=== PATIENT | male | born 1980 | race Caucasian/White ===

== ENCOUNTER 2016-11-27 05:30 | Emergency (ER) | payer MEDICAID ==
[2016-11-27 05:50] VITALS: BP 132/75
[2016-11-27] MEDS ORDERED: Ketorolac 60 MG/2 ML SDV IM ONE (06:20)
[2016-11-27] MEDS ORDERED: Indomethacin 25 MG Cap PO ONE (06:25)
--- NOTE | 2016-11-27 07:36 | ER ---
DATE SEEN: 11/27/2016 CHIEF COMPLAINT: Pain in toe. HISTORY OF PRESENT ILLNESS: This is a 36-year-old male complaining of pain in the right toe that started when he was street walking. Severe pain on any touch beneath the foot, associated with some tightness. REVIEW OF SYSTEMS: No fever or chills. SOCIAL HISTORY: He admits to drinking alcohol regularly. MEDICATIONS: None. ALLERGIES: None. PHYSICAL EXAMINATION: VITAL SIGNS: Blood pressure is normal. Temp 97.2. EXTREMITIES: Right foot showed mild swelling. Edema of the first metatarsal. Exquisite tenderness to palpation. Decreased range of motion. IMAGING: X-ray was negative. IMPRESSION: First metatarsal joint pain, rule out gout. PLAN: Ketorolac 60 mg IM and indomethacin 50 mg orally once. I will write a prescription for indomethacin to use 50 mg 3 times a day. Information of gout will be provided. /[id number] CHARISSE/JADEN
--- NOTE | 2016-11-27 11:13 | CR ---
INDICATION: Pain in ball of foot. RIGHT FOOT: Three views of the right foot were obtained and revealed a small plantar calcaneal spur with no other significant bone or joint abnormality. If an occult fracture site is suspected clinically, nuclear bone imaging is recommended for further evaluation. MTDD
== END 2016-11-27 06:45 | disposition home or self-care (01) ==
LOC: FB.ED 05:30
DX: M25.571 Pain in right ankle and joints of right foot (principal)
CPT/HCPCS: 73630; 96372; 99283; A9270; J1885

== ENCOUNTER 2017-08-09 21:13 | Emergency (ER) | payer MEDICAID ==
[2017-08-09] MEDS ORDERED: Cyclobenzaprine 10 MG Tab PO ONE (21:14)
[2017-08-09] MEDS ORDERED: Acetaminophen/HYDROcodone 325-5 MG Tab PO ONE (21:14)
[2017-08-09] MEDS ORDERED: Ketorolac 60 MG/2 ML SDV IM ONE (21:18)
[2017-08-09 22:30] VITALS: BP 132/73
--- NOTE | 2017-08-11 00:56 | ER ---
DATE SEEN: 08/09/2017 TIME SEEN: 2200 hours. REASON FOR VISIT: Back pain. HISTORY OF PRESENT ILLNESS: A 37-year-old male, who complains of back pain. Sudden onset, sitting down eating when the pain started. Severe low back area with no radiation, any movement makes it worse. Associated spasms. PAST MEDICAL HISTORY: This has happened before 2 years ago. No recent trauma. ALLERGIES: None. REVIEW OF SYSTEMS: No weakness of the legs, urinary symptoms, fever, or chills. PHYSICAL EXAMINATION: GENERAL: He is in a wheelchair. VITAL SIGNS: Blood pressure is normal. He is afebrile. MUSCULOSKELETAL: Lower back several muscle spasms noted. Tenderness in the paravertebral muscles in the lumbar area. Gait and station antalgic, difficult, stiff. NEUROLOGIC: No focal findings. Straight leg raising test negative. IMPRESSION: Back spasm. PLAN: Ketorolac and Valium. Symptoms improved somewhat. The patient is sent home on hydrocodone and Flexeril, to follow up in the office p.[email or web address] /[id number] CHARISSE/JADEN
== END 2017-08-09 22:25 | disposition home or self-care (01) ==
LOC: FB.ED 21:13
DX: M62.830 Muscle spasm of back (principal)
CPT/HCPCS: 96372; 99283; A9270; J1885; J3360

== ENCOUNTER 2018-01-18 00:58 | Emergency (ER) | payer MEDICAID ==
--- NOTE | 2018-01-18 01:14 | EDM.PDOC ---
ED HPI GENERAL MEDICAL PROBLEM - General Stated Complaint: ABDOMINAL PAIN Time Seen by Provider: 01/18/18 01:00 Source of Information: Reports: Patient History Limitations: Reports: No Limitations - History of Present Illness INITIAL COMMENTS - FREE TEXT/NARRATIVE: c/o cramping abd pain works 12h days pouring concrete, felt fine on return home from work, ate supper , went to bed, awake 1h [employer] and had hard cramping pain in suprapubic area "crying in pain," loose BM x 2, then passed gas on ride to ED and now feels fine will check electrolytes, does appear mildly dehydrated, says he drinks a galloon of H2O when working - Related Data Allergies Allergy/AdvReac Type Severity Reaction Status Date / Time No Known Allergies Allergy Verified 01/18/18 01:55 Home Meds: Home Meds NK [No Known Home Meds] 08/09/17 [History] Past Medical History Other Musculoskeletal History: low back pain Psychiatric History: Reports: Depression Social & Family History - Family History Family Medical History: Unobtainable - Caffeine Use Caffeine Use: Reports: Tea ED ROS GENERAL - Review of Systems Review Of Systems: See Below Constitutional: Reports: No Symptoms HEENT: Reports: No Symptoms Respiratory: Reports: No Symptoms Cardiovascular: Reports: No Symptoms Endocrine: Reports: No Symptoms GI/Abdominal: Reports: Abdominal Pain : Reports: No Symptoms Musculoskeletal: Reports: No Symptoms Skin: Reports: No Symptoms Neurological: Reports: No Symptoms Psychiatric: Reports: No Symptoms Hematologic/Lymphatic: Reports: No Symptoms Immunologic: Reports: No Symptoms ED EXAM, GI/ABD - Physical Exam Exam: See Below Exam Limited By: No Limitations General Appearance: Alert, WD/WN, No Apparent Distress Nose: Normal Inspection, Normal Mucosa Throat/Mouth: Normal Inspection, Normal Lips, No Airway Compromise Head: Atraumatic, Normocephalic Neck: Normal Inspection, Supple, Non-Tender, Full Range of Motion Respiratory/Chest: No Respiratory Distress, Lungs Clear, Normal Breath Sounds, No Accessory Muscle Use, Chest Non-Tender Cardiovascular: Regular Rate, Rhythm, No JVD, No Murmur Back Exam: Normal Inspection, Full Range of Motion. No: CVA Tenderness (R), CVA Tenderness (L) Extremities: Normal Inspection, Normal Range of Motion, Non-Tender, No Pedal Edema Neurological: Alert, Oriented, CN II-XII Intact, Normal Cognition, No Motor/ Sensory Deficits Psychiatric: Normal Affect, Normal Mood Skin Exam: Warm, Dry, Intact, Normal Color, No Rash, Other (mild dec'd turgor) Lymphatic: No Adenopathy Course - Vital Signs Last Recorded V/S: Last Vital Signs Temp 37.2 C 01/18/18 02:10 Pulse 76 01/18/18 02:10 Resp 18 01/18/18 02:10 BP 108/72 01/18/18 02:10 Pulse Ox 96 01/18/18 02:10 - Orders/Labs/Meds Labs: Laboratory Tests 01/18/18 01/18/18 Range/Units 01:37 01:37 WBC 7.9 (4.5-12.0) X10-3/uL RBC 4.36 (4.30-5.75) x10(6)uL Hgb 13.5 (11.5-15.5) g/dL Hct 39.1 (30.0-51.3) % MCV 89.6 (80-96) fL MCH 31.0 (27.7-33.6) pg MCHC 34.5 (32.2-35.4) g/dL RDW 12.6 (11.5-15.5) % Plt Count 188 (125-369) X10(3)uL MPV 8.6 (7.4-10.4) fL Neut % (Auto) 76.2 (46-82) % Lymph % (Auto) 12.4 L (13-37) % Buchanan % (Auto) 8.6 (4-12) % Eos % (Auto) 2 (1.0-5.0) % Baso % (Auto) 0 (0-2) % Neut # (Auto) 6.0 (1.6-8.3) # Lymph # (Auto) 1.0 (0.6-5.0) # Buchanan # (Auto) 0.7 (0.0-1.3) # Eos # (Auto) 0.2 (0.0-0.8) # Baso # (Auto) 0.0 (0.0-0.2) # Sodium 140 (135-145) mmol/L Potassium 3.8 (3.5-5.3) mmol/L Chloride 107 (100-110) mmol/L Carbon Dioxide 24 (21-32) mmol/L BUN 12 (7-18) mg/dL Creatinine 1.0 (0.70-1.30) mg/dL Est Cr Clr Drug Dosing TNP Estimated GFR (MDRD) > 60 (>60) BUN/Creatinine Ratio 12.0 (9-20) Glucose 126 H (80-116) mg/dL Calcium 7.7 L (8.6-10.2) mg/dL Total Bilirubin 0.4 (0.1-1.3) mg/dL AST 14 (5-25) IU/L ALT 23 (12-36) U/L Alkaline Phosphatase 72 (56-112) IU/L Total Protein 5.9 L (6.0-8.0) g/dL Albumin 3.1 L (3.5-5.2) g/dL Globulin 2.8 g/dL Albumin/Globulin Ratio 1.1 - Re-Assessments/Exams Free Text/Narrative Re-Assessment/Exam: 01/18/18 02:24 electrolytes neg, alb a little low pt sleeping Departure - Departure Time of Disposition: 02:25 Disposition: Home, Self-Care 01 Condition: Good Clinical Impression: Spasm of colon - Discharge Information Instructions: Rehydration, Adult Referrals: Jatin Hollingsworth MD [Primary Care Provider] - Additional Instructions: Maintain fluids, at least 4 liters daily when working in hot weather. Eat 3 meals a day. See your doctor in 1 week. Return to Emergency Department if you are feeling worse.
[2018-01-18 02:16] VITALS: BP 108/72
== END 2018-01-18 02:30 | disposition home or self-care (01) ==
LOC: FB.ED 00:58
DX: K58.9 Irritable bowel syndrome, unspecified (principal)
CPT/HCPCS: 36415; 80053; 85025; 99283

== ENCOUNTER 2018-02-08 03:43 | Emergency (ER) | payer MEDICAID ==
[2018-02-08] MEDS ORDERED: Ibuprofen 600 MG Tab PO ONE (03:50)
--- NOTE | 2018-02-08 03:50 | EDM.PDOC ---
ED HPI GENERAL MEDICAL PROBLEM - General Stated Complaint: LT FOOT PAIN Time Seen by Provider: 02/08/18 03:43 Source of Information: Reports: Patient, Family History Limitations: Reports: No Limitations - History of Present Illness INITIAL COMMENTS - FREE TEXT/NARRATIVE: 37 y.o.w.m came to the ed due to right dorsal foot pain. Pt does not remember a trauma. Pt can not apply full pineda onto his right foot due to pain. No open wound no other acute medical issues. BP 116/62 RR 16 Pulse ox 98 Temp 36.6 Pulse 66 Onset Date: 02/07/18 Onset Time: 22:00 Duration: Hour(s):, Intermittent Location: Reports: Lower Extremity, Right (foot) Quality: Reports: Ache, Dull, Same as Previous Episode Severity: Moderate Improves with: Reports: Rest Worsens with: Reports: Movement Context: Reports: Other (does not remmember a trauma. ) Associated Symptoms: Reports: No Other Symptoms - Related Data Allergies Allergy/AdvReac Type Severity Reaction Status Date / Time No Known Allergies Allergy Verified 02/08/18 04:26 Home Meds: Home Meds NK [No Known Home Meds] 08/09/17 [History] Past Medical History Respiratory History: Reports: Asthma, Other (See Below) Other Respiratory History: States he had asthma as a baby. Other Musculoskeletal History: low back pain Psychiatric History: Reports: Depression Social & Family History - Family History Family Medical History: Unobtainable - Caffeine Use Caffeine Use: Reports: Tea Review of Systems - Review of Systems Review Of Systems: See Below Constitutional: Reports: No Symptoms Eyes: Reports: No Symptoms Ears: Reports: No Symptoms Nose: Reports: No Symptoms Mouth/Throat: Reports: No Symptoms Respiratory: Reports: No Symptoms Cardiovascular: Reports: No Symptoms GI/Abdominal: Reports: No Symptoms Genitourinary: Reports: No Symptoms Musculoskeletal: Reports: Foot Pain Skin: Reports: No Symptoms Neurological: Reports: No Symptoms Psychiatric: Reports: No Symptoms ED EXAM, GENERAL - Physical Exam Exam: See Below Exam Limited By: No Limitations General Appearance: Alert, WD/WN, Mild Distress Eye Exam: Bilateral Eye: Normal Inspection Ears: Normal External Exam Ear Exam: Bilateral Ear: Auricle Normal Nose: Normal Inspection, Normal Mucosa, No Blood Throat/Mouth: Normal Inspection, Normal Lips, Normal Voice, No Airway Compromise Head: Atraumatic, Normocephalic Neck: Normal Inspection, Supple, Non-Tender, Full Range of Motion Respiratory/Chest: No Respiratory Distress, Lungs Clear, Normal Breath Sounds, Chest Non-Tender Cardiovascular: Normal Peripheral Pulses, Regular Rate, Rhythm, No Edema Peripheral Pulses: 1+: Brachial (R) GI/Abdominal: Normal Bowel Sounds, Soft, Non-Tender, No Organomegaly, No Abnormal Bruit, No Mass (Male) Exam: Deferred Rectal (Males) Exam: Deferred Back Exam: Normal Inspection, Full Range of Motion Extremities: Normal Range of Motion, Normal Capillary Refill, Other (swolen and tender right foot, dorsal aspect) Neurological: Alert, Oriented, CN II-XII Intact, Normal Cognition, Abnormal Gait (due to right foot pain) Psychiatric: Normal Affect, Normal Mood Skin Exam: Warm, Dry, Intact, Normal Color, No Rash Lymphatic: No Adenopathy Course - Vital Signs Text/Narrative:: 37 y.o.w.m came to the ed due to right dorsal foot pain. Pt does not remember a trauma. Pt can not apply full pineda onto his right foot due to pain. No open wound no other acute medical issues. BP 116/62 RR 16 Pulse ox 98 Temp 36.6 Pulse 66 PE: WNWD W M with right foot pain Imaging; Right foot/ankle: NAD Official report is pending Impression: Right foot sprain DDx Gout right foot Tx: ICE, Motrin/Toradol, Crutches Reexam: Improved Plan: D/C with instruction Last Recorded V/S: Last Vital Signs Temp 36.8 C 02/08/18 04:50 Pulse 66 02/08/18 04:50 Resp 16 02/08/18 04:50 BP 123/76 02/08/18 04:50 Pulse Ox 98 02/08/18 04:50 - Orders/Labs/Meds Orders: Active Orders 24 hr Category Date Time Status Ankle Min 3V Rt [CR] Stat Exams 02/08/18 03:48 Taken Foot Comp Min 3V Rt [CR] Stat Exams 02/08/18 03:48 Taken Ice Therapy [OM.PC] Routine Oth 02/08/18 03:50 Ordered Meds: Medications Discontinued Medications Generic Name Dose Route Start Last Admin Trade Name Mehul PRN Reason Stop Dose Admin Ibuprofen 600 mg 02/08/18 03:50 02/08/18 04:27 Motrin PO 02/08/18 03:51 600 mg ONETIME ONE Administration Ketorolac Tromethamine 60 mg 02/08/18 04:41 02/08/18 04:45 Toradol IM 02/08/18 04:42 60 mg ONETIME ONE Administration Departure - Departure Time of Disposition: 04:33 Disposition: Home, Self-Care 01 Condition: Good Clinical Impression: Sprain of foot, right Qualifiers: Encounter type: initial encounter Qualified Code(s): S93.601A - Unspecified sprain of right foot, initial encounter - Discharge Information Instructions: Crutch Use, Adult, [id number], Gout, [id number]-Iwps, Foot Sprain , Elastic Bandage and RICE Referrals: Jatin Hollingsworth MD [Primary Care Provider] - Forms: ED Return to Work/School Form Additional Instructions: Motrin for pain, ICE, Rest and elevation, use crutches id needed, please f/u with your PMD, come back if your symptoms get worse acutely - My Orders Last 24 Hours: My Active Orders 02/08/18 03:48 Ankle Min 3V Rt [CR] Stat Foot Comp Min 3V Rt [CR] Stat 02/08/18 03:50 Ice Therapy [OM.PC] Routine - Assessment/Plan Last 24 Hours: My Active Orders 02/08/18 03:48 Ankle Min 3V Rt [CR] Stat Foot Comp Min 3V Rt [CR] Stat 02/08/18 03:50 Ice Therapy [OM.PC] Routine
[2018-02-08] MEDS ORDERED: Ketorolac 60 MG/2 ML SDV IM ONE (04:41)
[2018-02-08 05:33] VITALS: BP 123/76
--- NOTE | 2018-02-08 11:16 | CR ---
INDICATION: Trauma, pain front of ankle and top of foot. RIGHT ANKLE: Three views of the right ankle revealed no evidence of an acute fracture, dislocation, or other significant appearing bone or joint abnormality with the ankle mortise appearing intact. There is noted a small sized plantar calcaneal spur. IMPRESSION: Except for a plantar calcaneal spur, normal x-ray examination of the right ankle. MTDD
--- NOTE | 2018-02-08 11:17 | CR ---
INDICATION: Trauma, pain front of ankle and top of foot. RIGHT FOOT: Three views of the right foot were obtained and revealed a small plantar calcaneal spur. A fracture, dislocation, or other significant appearing bone or joint abnormality was not identified. If an occult fracture site is suspected clinically - if symptoms persist - additional examination may be warranted, such as repeat x-rays or possibly nuclear bone imaging, CT, or MRI. IMPRESSION: Small plantar calcaneal spur. MTDD
== END 2018-02-08 05:00 | disposition home or self-care (01) ==
LOC: FB.ED 03:43
DX: S93.601A Unspecified sprain of right foot, initial encounter (principal); M77.31 Calcaneal spur, right foot; X58.XXXA Exposure to other specified factors, initial encounter
CPT/HCPCS: 73610; 73630; 96372; 99283; A9270; J1885

== ENCOUNTER 2022-03-22 14:59 | Emergency (ER) | payer MEDICAID ==
[2022-03-22] MEDS ORDERED: Ciprofloxacin 500 MG Tab PO STA (15:31)
[2022-03-22 15:37] VITALS: BP 132/73; PULSE 75
== END 2022-03-22 15:43 | disposition home or self-care (01) ==
LOC: FB.ED 14:59
DX: L73.9 Follicular disorder, unspecified (principal)
CPT/HCPCS: 99282; A9270

== ENCOUNTER 2023-08-09 14:49 | Emergency (ER) | payer MEDICAID ==
[2023-08-09 15:13] VITALS: BP 127/84; PULSE 97
== END 2023-08-09 15:30 | disposition home or self-care (01) ==
LOC: FB.ED 14:49
DX: S60.940A Unspecified superficial injury of right index finger, initial encounter (principal); E11.9 Type 2 diabetes mellitus without complications; F17.210 Nicotine dependence, cigarettes, uncomplicated; W26.8XXA Contact with other sharp object(s), not elsewhere classified, initial encounter
CPT/HCPCS: 12001; 99283

== ENCOUNTER 2025-04-20 08:56 | Emergency (ER) | payer SELFPAY ==
[2025-04-20 09:26] LABS: BASOPHILS ABSOLUTE AUTO 0.0 x10-3/uL (0.0-0.3); BASOPHILS PERCENT AUTO 0.7 % (0.3-3.8); EOSINOPHILS ABSOLUTE AUTO 0.2 x10-3/uL (0.0-0.6); EOSINOPHILS PERCENT AUTO 2.5 % (0.1-6.8); LYMPHOCYTES ABSOLUTE AUTO 1.6 x10-3/uL (0.5-4.5); LYMPHOCYTES PERCENT AUTO 24.1 % (15.8-45.3); MEAN PLATELET VOLUME 7.4 fL (6.7-11.0); MONOCYTES ABSOLUTE AUTO 0.5 x10-3/uL (0.0-1.2); MONOCYTES PERCENT AUTO 6.7 % (5.5-15.2); NEUTROPHILS ABSOLUTE AUTO 4.5 x10-3/uL (1.7-6.9); NEUTROPHILS PERCENT AUTO 66.0 % (40.3-71.8); PLATELET COUNT,PLT 204 x10(3)uL (117-477); RED BLOOD CELL COUNT 4.68 x10(6)uL (3.90-5.90); RED CELL DISTRIBUTION WIDTH 13.5 % (12.4-15.0); WHITE BLOOD CELL COUNT,WBC 6.8 x10-3/uL (3.2-10.1)
[2025-04-20] MEDS: Ketorolac 30 MG/ML SDV IVPUSH ONE (09:30)
[2025-04-20 09:31] LABS: BLOOD UREA NITROGEN,BUN 15 mg/dL (7-18); CARBON DIOXIDE,CO2 27 mmol/L (21-32); CHLORIDE,CL 107 mmol/L (100-110); CREATININE 1.1 mg/dL (0.70-1.30); EST CRCL DRUG DOSING (CG) 97.86 mL/min; ESTIMATED GFR 85 mL/min (>60); GLUCOSE RANDOM 126 mg/dL (80-116); POTASSIUM,K 4.0 mmol/L (3.5-5.3); SODIUM,NA 138 mmol/L (135-145)
[2025-04-20 09:35] LABS: A/G RATIO 1.0; ALANINE AMINOTRANSFERASE,ALT 22 U/L (12-36); ASPARTATE AMNIOTRANSFERASE,AST 17 IU/L (5-25); BILIRUBIN TOTAL 0.3 mg/dL (0.1-1.3); PROTEIN TOTAL,TP 6.5 g/dL (6.0-8.0)
[2025-04-20 13:07] VITALS: BP 117/58; PULSE 69
== END 2025-04-20 13:00 | disposition home or self-care (01) ==
LOC: FB.ED 08:56
DX: R10.9 Unspecified abdominal pain (principal); E11.9 Type 2 diabetes mellitus without complications; F17.210 Nicotine dependence, cigarettes, uncomplicated; Z79.899 Other long term (current) drug therapy
CPT/HCPCS: 36415; 74176; 80053; 82550; 83690; 85025; 96361; 96374; 99284; A9270; J1885; J7030